=== PATIENT | female | born 1995 | race African-American/Black ===

== ENCOUNTER 2016-11-09 12:14 | Emergency (ER) | payer MEDICAID ==
[~2016-11-09] VITALS: Ht 160 cm; Wt 55.0 kg
[2016-11-09 12:25] VITALS: BP 110/54
[2016-11-09] MEDS ORDERED: IBUPROFEN 600MG TABLET PO ONE (17:30)
== END 2016-11-09 17:45 | disposition home or self-care (01) ==
LOC: ER 14:46
DX: M79.671 Pain in right foot (principal); M25.571 Pain in right ankle and joints of right foot; F17.200 Nicotine dependence, unspecified, uncomplicated; F12.10 Cannabis abuse, uncomplicated
CPT/HCPCS: 73610; 73630; 81025; 99284; Z7610

== ENCOUNTER 2018-04-06 18:59 | Emergency (ER) | payer MEDICAID | END 2018-04-07 08:06 | disposition left against medical advice (07) | LOC: ER 04-07 07:57 | DX: Z53.21 Procedure and treatment not carried out due to patient leaving prior to being seen by health care provider (principal) ==

== ENCOUNTER 2021-06-25 13:31 | Emergency (ER) | payer MEDICAID ==
[~2021-06-25] VITALS: Ht 134.6 cm; Wt 50.0 kg
[2021-06-25 13:36] VITALS: BP 129/76
== END 2021-06-25 19:23 | disposition home or self-care (01) ==
LOC: ER 13:31
DX: T76.21XA Adult sexual abuse, suspected, initial encounter (principal); X58.XXXA Exposure to other specified factors, initial encounter; F12.10 Cannabis abuse, uncomplicated; Z59.00 Homelessness unspecified
CPT/HCPCS: 99281